=== PATIENT | female | born 1960 | race Caucasian/White ===

== ENCOUNTER 2017-07-27 08:12 | Day surgery (SDC) | payer MEDICAID, SELFPAY ==
--- NOTE | 2017-07-27 08:12 | DT_ITS ---
This patient was seen during an EMR downtime July 25, 2017 - August 01, 2017. This patient may have a combination of paper and electronic documentation or all paper documentation. All documentation is viewable within the e-chart portion of [employer] for each patient visit.
== END 2017-07-27 11:05 | disposition home or self-care (01) ==
LOC: EN 07-28 11:43
PROVIDERS: Family Provider Student in an Organized Health Care Education/Training Program; PCP Student in an Organized Health Care Education/Training Program; Visit Provider Surgery
PROC: 0DJD8ZZ Inspection of Lower Intestinal Tract, Via Natural or Artificial Opening Endoscopic (ICD-10-PCS; CPT 45378; principal; 2017-07-27 09:25)
DX: Z12.11 Encounter for screening for malignant neoplasm of colon (principal); R13.10 Dysphagia, unspecified; K57.90 Diverticulosis of intestine, part unspecified, without perforation or abscess without bleeding; I10 Essential (primary) hypertension; Z79.899 Other long term (current) drug therapy; G25.81 Restless legs syndrome; K44.9 Diaphragmatic hernia without obstruction or gangrene; E78.00 Pure hypercholesterolemia, unspecified; F41.9 Anxiety disorder, unspecified; F32.9 Major depressive disorder, single episode, unspecified
CPT/HCPCS: 43239; 45378; J7120

== ENCOUNTER 2017-09-29 08:43 | Day surgery (SDC) | payer MEDICAID, SELFPAY ==
[2017-09-29 09:43] VITALS: BP 151/108; PULSE 71; TEMP 35.9; O2SAT 98
--- NOTE | 2017-09-29 09:43 | SUR.OPER ---
LIDOCAINE JELLY APPLIED TO INSIDE OF L. NARE. PROBE INSERTED AND MANOMETRY COMPLETED. PT. TOLERATED WELL. PT. AMBULATED TO BATHROOM AND WAITING ROOM. ESCORTED OUT BY MARCOS.
== END 2017-09-29 09:45 | disposition home or self-care (01) ==
LOC: EN 08:44
PROVIDERS: Family Provider Student in an Organized Health Care Education/Training Program; PCP Student in an Organized Health Care Education/Training Program; Visit Provider Surgery
PROC: F00ZJWZ Instrumental Swallowing and Oral Function Assessment using Swallowing Equipment (ICD-10-PCS; CPT 43235; principal; 2017-09-29 08:55)
DX: R13.10 Dysphagia, unspecified (principal)
CPT/HCPCS: 91010

== ENCOUNTER → 2018-07-13 10:00 | Outpatient (CLI) | payer MEDICAID, SELFPAY ==
--- NOTE | 2018-07-13 16:00 | LES_PTH ---
PATIENT: ALISIA JEAN-BAPTISTE LOC: [facility] U#:[id number] AGE/SX: 64/F ROOM: RE07/13/[address]: Dr. Warner Morales MD : 1960 BED: DIS: SPEC #: [id number] RECD: 07/13/18 17:47 STATUS: RADHA REGeo #: [id number] MARGIE: 07/13/18 16:[address]: Warner Morales DEPT: SURGICAL PATHOLOGY RECD BY: Melchor Sanchez ENTERED: 07/14/18 09:20 SP TYPE: Lesion OTHR DR: Dr. Shaan Brown, Tissues: Skin of eyelid, NOS Procedures: Surgery Specimen Level III HEADER OPERATION: Right upper lid lesion PRE-OP DIAGNOSIS: Possible small inclusion cyst TISSUE SUBMITTED: Right upper eyelid lesion MICROSCOPIC DIAGNOSIS Right upper lid lesion, biopsy: Epidermal inclusion cyst. AM:jorge 07/18/18 MICROSCOPIC DESCRIPTION Slides are reviewed. GROSS DESCRIPTION Received in fixative is one container labeled with the patient's name and designated upper lid. The specimen consists of one irregular fragment of light walters soft tissue that measures 0.5 x 0.2 x 0.2 cm. The specimen is totally submitted in one cassette. / AM:jorge 07/14/18 TC:5 CPT: 60288
== END ==
PROVIDERS: Family Provider Student in an Organized Health Care Education/Training Program; PCP Student in an Organized Health Care Education/Training Program; Visit Provider Ophthalmology
DX: H02.9 Unspecified disorder of eyelid (principal)
CPT/HCPCS: 88304; 88305

== ENCOUNTER 2020-09-16 10:29 | Emergency (ER) | payer MEDICAID, SELFPAY ==
[2020-09-16 10:30] VITALS: BP 156/101; PULSE 89; RESP 16; TEMP 36.7; BMI 37.5
[2020-09-16 11:09] LABS: Absolute Lymphocyte Count 2.11 X10^3/uL (0.83-4.51); Absolute Neutrophil Count 7.4 X10^3/uL (2.0-7.7); Basophil# 0.09 X10^3/uL; Basophil% 0.8 % (0-1); Eosinophil# 0.29 X10^3/uL; Eosinophils% 2.7 % (0-5); Hematocrit 46.2 % (37-47); Hemoglobin 15.9 g/dL (12.0-15.0); Lymphocyte # 2.11 X10^3/ul (0.83-4.51); Lymphocyte % 19.4 % (19-41); Mean Corp Hgb Conc 34.4 g/dL (32-36); Mean Corpuscular Hgb 31.1 pg (27.0-32.0); Mean Corpuscular Volume 90.4 fL (81-99); Monocyte# 1.02 X10^3/uL; Monocyte% 9.4 % (0-10); NRBC Flagged by Analyzer 0 % (0-5); Neutrophil # 7.35 X10^3/uL (2.7-7.7); Neutrophil % 67.3 % (47-70); Platelet Count 350 K/mm3 (150-450); RBC Distribution Width CV 11.1 % (11.6-14.6); RBC Distribution Width SD 36.7 fl (35.1-43.9); Red Blood Count 5.11 M/mm3 (4.2-5.4); White Blood Count 10.9 K/mm3 (4.4-11.0)
--- NOTE | 2020-09-16 11:09 | EDS_ITS ---
HPI History of Present Illness Chief Complaint: Hypertension Narrative Narrative: 60-year-old female presenting with abdominal pain, nausea, vomiting. She states this is been going on since Tuesday. Patient was seen in [place] and had a CT of the abdomen pelvis performed which she and her family stated there was a mass in her abdomen which supposedly is not obstructing anything. Patient not able to hold down food and fluids.Patient has not had fever or chills. She states that she has hypertension and prediabetes. No urinary complaints. PFSH PFS Medical History (Updated 09/16/20 @ 11:12 by Fam James) Depression Diabetes Dysphagia Home Medications multivitamin 1 tab PO DAILY 06/14/17 [History Last Taken 09/12/20] hydrochlorothiazide 12.5 mg PO DAILY 07/13/17 [History Last Taken 09/12/20] potassium chloride 10 meq PO DAILY 07/13/17 [History Last Taken 09/12/20] cholecalciferol (vitamin D3) 2,000 unit PO DAILY 09/16/20 [History Last Taken 09/12/20] metformin 500 mg PO DAILY 09/16/20 [History Last Taken 09/12/20] Allergy/AdvReac Type Severity Reaction Status Date / Time No Known Allergies Allergy Verified 10/28/17 10:30 Family History Mother Hypertension Surgical History History of esophagogastroduodenoscopy (EGD) Hx of colonoscopy S/P laparoscopic cholecystectomy Social History Smoking Status: Never smoker alcohol intake: never ROS ROS ED Constitutional Constitutional ED: Denies change in weight Eyes Eyes: Denies diplopia or double vision ENT ENT ED: Denies ear pain or sore throat Cardiovascular Cardiovascular: Denies chest pain, palpitations or racing heartbeat Respiratory/Chest Respiratory/Chest: Denies cough, dyspnea or sputum Gastrointestinal Gastrointestinal: Reports abdominal pain, nausea and vomiting; Denies constipation or diarrhea Genitourinary Genitourinary ED: Denies dysuria, hematuria or urinary frequency Musculoskeletal Musculoskeletal: Denies arthralgias, myalgias or neck pain Integumentary Denies abscess, Abrasions or rash Neurologic Neurologic: Denies headache(s), paresthesias or weakness Psychiatric Psychiatric: Denies anxiety, depression, suicidal ideation or suicidal thoughts Endocrine Endocrinology: Denies polydipsia or polyuria EXAM Physical Exam Const Vital Signs: 09/16/20 10:30 09/16/20 11:11 09/16/20 13:24 Temperature 98.0 F Temperature Source Temporal Pulse Rate 89 85 Respiratory Rate 16 19 H Respiratory Effort Normal Respiratory Pattern Normal Blood Pressure 156/101 H 153/106 H Blood Pressure Mean 119 121 Pulse Ox 95 Oxygen Delivery Method Room Air 09/16/20 14:51 09/16/20 15:15 Temperature Temperature Source Pulse Rate 84 80 Respiratory Rate 20 H 17 Respiratory Effort Respiratory Pattern Blood Pressure 143/88 H Blood Pressure Mean 106 Pulse Ox 96 Oxygen Delivery Method Room Air Positive obese and no apparent distress General Appearance ED: Negative for pallor Nutritional Appearance: obese HEENT Reports normocephalic, head/scalp atraumatic, moist mucous membranes and moist oral mucous membranes normocephalic and atraumatic Eyes PERRL and EOMs intact bilaterally; Negative for no scleral icterus Pupil: PERRL Neck full ROM, no lymphadenopathy and supple Resp normal respiratory effort and clear to auscultation bilaterally Auscultation: Negative for rales, rhonchi or wheezes Cardio regular rate and regular rhythm GI GI Narrative: Epigastric tenderness to palpation. Auscultation: normoactive bowel sounds Palpation: soft Narrative: Deferred Back/Spine no CVA tenderness Extremity normal to inspection General Extremety ED: Negative for edema or tenderness General Extremity: Negative for edema Neuro oriented x3 and CN's II-XII intact bilaterally Sensorium / Orientation: alert, oriented to person, oriented to place and oriented to time Motor Exam: strength 5/5 throughout Psych mental status grossly normal and thought process normal Attitude: No agitated Skin no rashes or lesions noted and no wounds General Skin Exam: Negative for jaundice or pallor MDM MDM MDM Narrative Medical decision making narrative: Patient presenting with abdominal pain, nausea, vomiting. Her blood pressure is elevated however she has been vomiting. Her current blood pressure is 143/88. Patient had a CT of the abdomen pelvis performed and states that she was told she may have a malignancy. While awaiting the CT to be uploaded in the system I did check lab work and her lab work is otherwise unremarkable with exception of a potassium of 3.1. CT of the abdomen pelvis reviewed with Dr. Horner and it does look like the patient has a gastric outlet syndrome. He stated that he could do an upper endoscopy but he would not be able to do anything for obstruction if we found this. He stated it would be better for them to be transferred to a tertiary facility that can manage this. I did speak with [facility] where she was initially referred and I did accept admission. Patient had NG tube placed and tolerated this well. KUB on my interpretation shows that the nasogastric tube is in the stomach. The radiologist does agree. We have been getting gastric contents with low intermittent suction. Patient is currently stable and awaiting transfer. Impression: 1. Gastric outlet obstruction 2. Nausea/vomiting Lab Data Attestation: I reviewed the patient's lab results. Labs: Laboratory Results - last 24 hr 09/16/20 09/16/20 11:05 11:05 WBC 10.9 RBC 5.11 Hgb 15.9 H Hct 46.2 MCV 90.4 MCH 31.1 MCHC 34.4 RDW Std Deviation 36.7 RDW Coeff of Konstantin 11.1 L Plt Count 350 MPV 9.0 Immature Gran % (Auto) 0.400 Neut % (Auto) 67.3 Lymph % (Auto) 19.4 [place] % (Auto) 9.4 Eos % (Auto) 2.7 Baso % (Auto) 0.8 Absolute Neuts (auto) 7.4 Absolute Lymphs (auto) 2.11 Nucleated RBC % 0 Sodium 137 Potassium 3.1 L Chloride 97 L Carbon Dioxide 32.0 Anion Gap 8 BUN 16 Creatinine 0.89 Estim Creat Clear Calc 66.19 Est GFR (MDRD) Af Amer 83 Est GFR (MDRD) Non-Af 69 BUN/Creatinine Ratio 17.9 Glucose 140 H Calcium 9.9 Total Bilirubin 0.90 Direct Bilirubin 0.22 AST 28 ALT 48 Alkaline Phosphatase 61 Total Protein 8.4 H Albumin 4.2 Globulin 4.2 Lipase 154 Radiography Diagnostic Testing: Radiology Impression KUB X-Ray 09/16/20 15:30 IMPRESSION: The tip of the nasogastric tube is in the body of the stomach just distal to the gastroesophageal junction. Electronically Signed: Regan Todd MD at 15:53 EDT , Service support , Discharge Plan Triage Chief Complaint: Hypertension ED Provider: Obdulio Osei Dx/Rx/DC Orders Prescriptions: No Action multivitamin tablet 1 tab PO DAILY RF: 0 hydrochlorothiazide 12.5 MG capsule 12.5 mg PO DAILY RF: 0 potassium chloride 10 MEQ tablet 10 meq PO DAILY RF: 0 metformin 500 mg tablet 500 mg PO DAILY RF: 0 cholecalciferol (vitamin D3) 50 mcg (2,000 unit) tablet 2,000 unit PO DAILY RF: 0 Primary Care Provider: Shaan Brown Referrals: Shaan Brown DO [Primary Care Provider] - Disposition Disposition: Transfer to Another Type HCF Discharge Location: [facility] Discharge Date/Time: 09/16/20 16:13
[2020-09-16] MEDS: 0.9% Normal Saline 1,000 ML 999 ML IV (11:16)
[2020-09-16] MEDS: Ondansetron 4 MG/2 ML Vial IV (11:16)
[2020-09-16 11:25] LABS: AST(SGOT) 28 U/L (15-37); Alanine Aminotransfer ALT/SGPT 48 U/L (13-56); Albumin, Serum 4.2 g/dL (3.2-5.0); Alkaline Phosphatase 61 U/L (45-117); Anion Gap 8 (5-15); BUN 16 mg/dL (7-18); BUN/Creat Ratio 17.9 RATIO (10-20); Bilirubin, Direct 0.22 mg/dL (0.00-0.30); Calcium,Total 9.9 mg/dL (8.5-10.1); Chloride 97 mmol/L (98-107); Creatinine, Serum 0.89 mg/dL (0.55-1.02); EST Glomerular Filtration Rate 69 mL/min (>60); Est Glom Filt Rate - Afr Amer 83 mL/min (>60); Estimated Creatinine Clearance 66.19 ml/min; Globulin 4.2 g/dL (2.2-4.2); Glucose 140 mg/dL (74-106); Lipase 154 U/L (73-393); Potassium 3.1 mmol/L (3.5-5.1); Protein, Total 8.4 g/dL (6.4-8.2); Sodium Level 137 mmol/L (136-145)
[2020-09-16 13:24] VITALS: BP 153/106; PULSE 85; RESP 19; O2SAT 95
--- NOTE | 2020-09-16 14:27 | ED.RN ---
CALLED [facility] REGARDING TRANSFER OF PT. DR VILLASENOR TALKING WITH TRANSFER LINE AND DEMOGRAPHIC FAXED
[2020-09-16] MEDS: Lidocaine 4% 5 ML Ampul 2 ML INHALATION (14:46)
[2020-09-16 14:51] VITALS: PULSE 84; RESP 20
[2020-09-16 15:15] VITALS: BP 143/88; PULSE 80; RESP 17; O2SAT 96
[2020-09-16] MEDS: Oxymetazoline 0.05% 1 SPRAY SPRAY.BTL 2 SPRAY NASAL (15:15)
--- NOTE | 2020-09-16 15:30 | RAD_ITS ---
STUDY: X-RAY - ABDOMEN/PELVIS REASON FOR EXAM: Female, 60 years old. Abdominal pain -- KUB with both diaphragms for PRICE/G Verification TECHNIQUE: Single AP view of the abdomen / pelvis. COMPARISON: None. FINDINGS: The tip of the nasogastric tube is in the body of the stomach just distal to the gastroesophageal junction. There is an unremarkable bowel gas pattern. The visualized liver, spleen and kidneys are grossly normal in size and morphology. Normal soft tissue structures. There are degenerative changes of the visualized lumbar spine. RAD/Abdomen Single View (Portable) IMPRESSION: The tip of the nasogastric tube is in the body of the stomach just distal to the gastroesophageal junction. Electronically Signed: Regan Todd MD at 15:53 EDT , Service support ,
== END 2020-09-16 16:13 | disposition other institution (70) ==
LOC: ED 11:23
PROVIDERS: Emergency Provider Student in an Organized Health Care Education/Training Program; PCP Student in an Organized Health Care Education/Training Program
DX: K31.1 Adult hypertrophic pyloric stenosis (principal); E11.9 Type 2 diabetes mellitus without complications; Z79.84 Long term (current) use of oral hypoglycemic drugs
CPT/HCPCS: 74018; 80048; 80076; 83690; 85025; 94640; 96361; 96374; 99285; J7030; A4216; J2405

== ENCOUNTER 2021-09-11 19:37 | Emergency (ER) | payer MEDICAID, SELFPAY ==
[2021-09-11 19:38] VITALS: BP 180/96; PULSE 111; RESP 16; TEMP 36.4; O2SAT 99; BMI 28.1
[2021-09-11 20:16] LABS: Bacteria 0 SEEN /hpf (None Seen); Mucous, Urine 0 SEEN /hpf (<or=2+); Red Blood Cells-Urine 0 SEEN /hpf (0-5)
[2021-09-11 20:18] LABS: Absolute Lymphocyte Count 2.78 X10^3/uL (0.83-4.51); Absolute Neutrophil Count 5.8 X10^3/uL (2.0-7.7); Basophil# 0.05 X10^3/uL; Basophil% 0.5 % (0-1); Eosinophil# 0.09 X10^3/uL; Hemoglobin 14.1 g/dL (12.0-15.0); Lymphocyte # 2.78 X10^3/ul (0.83-4.51); Lymphocyte % 29.4 % (19-41); Mean Corp Hgb Conc 34.4 g/dL (32-36); Mean Corpuscular Volume 90.1 fL (81-99); Monocyte# 0.75 X10^3/uL; Monocyte% 7.9 % (0-10); NRBC Flagged by Analyzer 0 % (0-5); Neutrophil # 5.78 X10^3/uL (2.7-7.7); Platelet Count 301 K/mm3 (150-450); RBC Distribution Width CV 11.9 % (11.6-14.6); RBC Distribution Width SD 38.7 fl (35.1-43.9); Red Blood Count 4.55 M/mm3 (4.2-5.4); White Blood Count 9.5 K/mm3 (4.4-11.0)
[2021-09-11 20:19] LABS: Color, Urine Yellow (Yellow); Glucose, Dipstick Normal (Normal); Ketone-Dipstick Negative (Negative); Leukocyte Esterase-Dipstick 500 /ul (Negative); Nitrite-Dipstick Negative (Negative); Occult Blood-Urine Negative /ul (Negative); Protein-Dipstick Negative (Negative); Specific Gravity, Urine 1.015 (1.002-1.030); Urine Bilirubin Dipstick Negative (Negative); Urine Clarity Sl. Cloudy (Clear); Urine Urobilinogen Normal (Normal)
[2021-09-11 20:58] LABS: Amorphous Sediment 1+ URATE; Squamous Epithelial Cells - UA 0-5 SEEN /hpf (5-10); White Blood Cells 25-50 SEEN /hpf (0-5)
--- NOTE | 2021-09-11 21:12 | CT_ITS ---
EXAM: CT ABDOMEN AND PELVIS WITHOUT INTRAVENOUS CONTRAST CLINICAL INDICATION: Pain epigastric TECHNIQUE: Helically acquired images were obtained of the abdomen and pelvis without intravenous contrast. This CT exam was performed using one or more of the following dose reduction techniques: automated exposure control, adjustment of the mA and/or kV according to patient size, and/or use of iterative reconstruction technique. This report was created using [employer] report generation technology. COMPARISON: 09/15/2020 FINDINGS: LOWER THORAX: Unremarkable. Lung bases are clear. No cardiomegaly. No significant pericardial effusion. ABDOMEN: LIVER: Unremarkable. Homogeneous. GALLBLADDER AND BILE DUCTS: There are surgical clips from a cholecystectomy. No intra- or extrahepatic biliary ductal dilation. PANCREAS: There is a stent within the pancreatic duct. No focal cystic mass. SPLEEN: Unremarkable. Normal size without focal cystic or solid mass. ADRENALS: Unremarkable. No nodules. KIDNEYS AND URETERS: Unremarkable. Normal renal size and position. No hydronephrosis. STOMACH AND BOWEL: Unremarkable. No stomach or bowel distention. No focal inflammatory change. PELVIS: APPENDIX: No evidence of acute appendicitis. BLADDER: Unremarkable. REPRODUCTIVE: Unremarkable as visualized. No mass. ABDOMEN and PELVIS: INTRAPERITONEAL SPACE: Unremarkable. No ascites or other fluid collection. No free air. BONES/JOINTS: Unremarkable. No suspicious lytic or blastic abnormality. SOFT TISSUES: Unremarkable. No discrete abdominal or pelvic wall hernia. VASCULATURE: Unremarkable. Abdominal aorta is non-dilated. LYMPH NODES: Unremarkable. No enlarged lymph nodes. CT/Abdomen/Pelvis without Cont IMPRESSION: No acute findings in the abdomen or pelvis. Electronically Signed: Woody Raymond MD at 22:13 EDT ,
--- NOTE | 2021-09-11 21:13 | EDS_ITS ---
HPI HPI - GI History of Present Illness Chief Complaint: Nausea/Vomiting Informant: patient Abdominal Pain/Flank Pain Onset: Today Context: Gradual Onset Timing: Continuous Quality: Aching Location: Epigastric (Across upper abdomen, no radiation) Current Severity: Mild Maximum Severity: Severe Worsened by: Nothing Relieved by: - (Vomiting) Nausea/Vomiting/Emesis GI Symptom: Positive for Nausea and Vomiting Onset: Today Quality: Positive for Nonbilious; Negative for Blood streaks, Coffee ground or Hematemesis Diarrhea/Melena/Hematochezia GI Symptom: Negative for Diarrhea, Melena or Hematochezia Associated Symptoms Associated Symptoms: Negative for Dysuria, Frequency, Hematuria or Urgency Narrative Narrative: Patient has had unusual GI symptoms she states for some time, but it is more like unusual interruption of her breathing, she states is hard to describe, and she was told she may have some reflux but she is not on medication for it. She had a Whipple 1 or 2 years ago and also has had her gallbladder out. She states today she was having upper abdominal pain that became excruciating, so she came to the ER for that. Now, she is feeling much better, seem to get much better after vomiting. She has vomited several times today. [facility] Medical History Depression Diabetes Dysphagia Home Medications hydrochlorothiazide 12.5 mg capsule 12.5 mg PO DAILY FLUID 07/13/17 [History Last Taken 09/12/20] cholecalciferol (vitamin D3) 50 mcg (2,000 unit) tablet 2,000 unit PO DAILY SUPPLEMENT 09/16/20 [History Last Taken 09/12/20] dicyclomine 10 mg capsule 10 mg PO Q6H PRN PRN abdominal discomfort #20 CAPSULES 09/12/21 [Rx Last Taken Unknown] metoclopramide HCl 10 mg tablet 10 mg PO Q6H PRN nausea and vomiting #20 tabs 09/12/21 [Rx Last Taken Unknown] pantoprazole 40 mg tablet,delayed release (Protonix) 40 mg PO DAILY #30 tabs 09/12/21 [Rx Last Taken Unknown] sucralfate 1 gram tablet (Carafate) 1 g PO .qid #28 tabs 09/12/21 [Rx Last Taken Unknown] Allergy/AdvReac Type Severity Reaction Status Date / Time No Known Allergies Allergy Verified 09/11/21 19:40 Family History Mother Hypertension Surgical History History of esophagogastroduodenoscopy (EGD) Hx of colonoscopy S/P laparoscopic cholecystectomy Social History Smoking Status: Never smoker alcohol intake: never ROS ROS ED Constitutional Constitutional ED: Denies chills or fever(s) Eyes Eyes: Denies change in vision or diplopia ENT ENT ED: Denies rhinorrhea or sore throat Cardiovascular Cardiovascular: Denies chest pain or palpitations Respiratory/Chest Respiratory/Chest: Denies cough or dyspnea Gastrointestinal Gastrointestinal: Reports abdominal pain, nausea and vomiting; Denies diarrhea Genitourinary Genitourinary ED: Denies dysuria or hematuria Musculoskeletal Musculoskeletal: Denies back pain or neck pain Integumentary Denies abscess or rash Neurologic Neurologic: Denies headache(s), paresthesias or weakness Psychiatric Psychiatric: Denies anxiety or suicidal thoughts EXAM Physical Exam Const Vital Signs: 09/11/21 19:38 09/11/21 22:41 Temperature 97.5 F L 96.9 F L Temperature Source Temporal Temporal Pulse Rate 111 H 78 Respiratory Rate 16 18 Blood Pressure 180/96 H 155/92 H Blood Pressure Mean 124 113 Pulse Ox 99 96 Oxygen Delivery Method Room Air Room Air Positive well nourished and well developed General Appearance ED: well developed and NAD HEENT Reports moist mucous membranes normocephalic and atraumatic Eyes PERRL and EOMs intact bilaterally Neck full ROM and supple Resp normal respiratory effort and clear to auscultation bilaterally Cardio regular rate, regular rhythm and no murmurs GI non-tender and non-distended Auscultation: hypoactive bowel sounds Palpation: soft Back/Spine no CVA tenderness General Back: other FROM Extremity normal to inspection General Extremety ED: Negative for edema, pulses abnormal or tenderness General Extremity: Negative for edema or pulses abnormal Neuro oriented x3, CN's II-XII intact bilaterally and no sensory deficits noted Sensorium / Orientation: awake and alert Motor Exam: strength 5/5 throughout Skin no rashes or lesions noted and no wounds MDM MDM MDM Narrative Medical decision making narrative: Upper abdominal etiologies, intraluminal etiologies, partial bowel obstruction, and cardiac etiologies were all considered in the differential of this upper abd ominal pain in the context of an elevated blood pressure 180/96. Labs are unremarkable including troponin, her urinalysis is abnormal but she has no urinary symptoms I will send her for a culture. There were no bacteria in it on the microscopy. Her EKG shows a sinus rhythm with first-degree block but no acute injury pattern or evidence of repolarization abnormality at this time. She was initially given Zofran and then morphine once her pain recurred, it did not really help much. Her CT was negative for anything acute. Therefore considering intraluminal possibilities not exclusive of peptic ulcer disease, I gave her Protonix, Bentyl, GI cocktail, and a small dose of IV Reglan, she has significant relief within 20 minutes. Therefore I will send her home with prescriptions for Protonix, dicyclomine, Carafate, and prn Reglan. Follow-up advised. She is comfortable with that plan. Lab Data Attestation: I reviewed the patient's lab results. Labs: Laboratory Results - last 24 hr 09/11/21 09/11/21 09/11/21 20:07 20:11 20:11 WBC 9.5 RBC 4.55 Hgb 14.1 Hct 41.0 MCV 90.1 MCH 31.0 MCHC 34.4 RDW Std Deviation 38.7 RDW Coeff of Konstantin 11.9 Plt Count 301 MPV 9.0 Immature Gran % (Auto) 0.200 Neut % (Auto) 61.0 Lymph % (Auto) 29.4 [place] % (Auto) 7.9 Eos % (Auto) 1.0 Baso % (Auto) 0.5 Absolute Neuts (auto) 5.8 Absolute Lymphs (auto) 2.78 Nucleated RBC % 0 Sodium Cancelled Potassium Cancelled Chloride Cancelled Carbon Dioxide Cancelled Anion Gap Cancelled BUN Cancelled Creatinine Cancelled Estim Creat Clear Calc Cancelled Est GFR (MDRD) Af Amer Cancelled Est GFR (MDRD) Non-Af Cancelled BUN/Creatinine Ratio Cancelled Glucose Cancelled Calcium Cancelled Total Bilirubin AST ALT Alkaline Phosphatase Troponin I High Sens Total Protein Albumin Globulin Albumin/Globulin Ratio Lipase Urine Color Yellow Urine Clarity Sl. Cloudy Urine pH 6.0 Ur Specific [place] 1.015 Urine Protein Negative Urine Glucose (UA) Normal Urine Ketones Negative Urine Occult Blood Negative Urine Nitrite Negative Urine Bilirubin Negative Urine Urobilinogen Normal Ur Leukocyte Esterase 500 H Urine RBC 0 SEEN Urine WBC 25-50 SEEN Ur Squamous Epith Cells 0-5 SEEN Amorphous Sediment 1+ URATE Urine Bacteria 0 SEEN Urine Mucus 0 SEEN 09/11/21 09/11/21 20:11 20:11 WBC RBC Hgb Hct MCV MCH MCHC RDW Std Deviation RDW Coeff of Konstantin Plt Count MPV Immature Gran % (Auto) Neut % (Auto) Lymph % (Auto) [place] % (Auto) Eos % (Auto) Baso % (Auto) Absolute Neuts (auto) Absolute Lymphs (auto) Nucleated RBC % Sodium 141 Potassium 3.4 L Chloride 107 Carbon Dioxide 28.0 Anion Gap 6 BUN 11 Creatinine 0.79 Estim Creat Clear Calc 73.64 Est GFR (MDRD) Af Amer 95 Est GFR (MDRD) Non-Af 79 BUN/Creatinine Ratio 13.9 Glucose 156 H Calcium 9.2 Total Bilirubin 0.50 AST 25 ALT 33 Alkaline Phosphatase 81 Troponin I High Sens 9 Total Protein 7.8 Albumin 3.8 Globulin 4.0 Albumin/Globulin Ratio 1.0 Lipase 161 Urine Color Urine Clarity Urine pH Ur Specific [place] Urine Protein Urine Glucose (UA) Urine Ketones Urine Occult Blood Urine Nitrite Urine Bilirubin Urine Urobilinogen Ur Leukocyte Esterase Urine RBC Urine WBC Ur Squamous Epith Cells Amorphous Sediment Urine Bacteria Urine Mucus Radiography Diagnostic Testing: Clinical Impression(s) from Imaging Studies Abdomen/Pelvis CT 09/11/21 21:12 IMPRESSION: No acute findings in the abdomen or pelvis. Electronically Signed: Woody Raymond MD at 22:13 EDT , Rhythm Strip Rhythm Strip: Sinus Rhythm Rate: 85 Ectopy: None EKG Initial EKG: Attestation: I personally reviewed and interpreted this EKG as follows: Interpretation: Sinus Rhythm, No Acute Injury Pattern and AV Block (1st deg) Discharge Plan Triage Chief Complaint: Nausea/Vomiting ED Provider: Israel Franklin Dx/Rx/DC Orders Clinical Impression: Acute upper abdominal pain, Nausea and vomiting Instructions: ED PEPTIC ULCER vs GASTRITIS Prescriptions: New pantoprazole [Protonix] 40 mg tablet,delayed release (DR/EC) 40 mg PO DAILY Qty: 30 0RF dicyclomine 10 mg capsule 10 mg PO Q6H PRN PRN (Reason: abdominal discomfort) Qty: 20 0RF metoclopramide HCl [metoclopramide HCl] 10 mg tablet 10 mg PO Q6H PRN (Reason: nausea and vomiting) Qty: 20 0RF sucralfate [Carafate] 1 gram tablet 1 g PO .qid Qty: 28 0RF No Action hydrochlorothiazide 12.5 MG capsule 12.5 mg PO DAILY cholecalciferol (vitamin D3) 50 mcg (2,000 unit) tablet 2,000 unit PO DAILY Label Comments: TAKE 1 TABLET BY MOUTH ONCE DAILY Primary Care Provider: Shaan Brown Referrals: Shaan Brown DO [Primary Care Provider] - 3-5 Days if not improving Disposition Disposition: Home, Self Care
[2021-09-11] MEDS: 0.9% Normal Saline 1,000 ML 1000 ML IV (21:23)
[2021-09-11 21:40] LABS: AST(SGOT) 25 U/L (15-37); Alanine Aminotransfer ALT/SGPT 33 U/L (13-56); Albumin, Serum 3.8 g/dL (3.2-5.0); Alkaline Phosphatase 81 U/L (45-117); Anion Gap 6 (5-15); BUN 11 mg/dL (7-18); BUN/Creat Ratio 13.9 RATIO (10-20); Calcium,Total 9.2 mg/dL (8.5-10.1); Chloride 107 mmol/L (98-107); Creatinine, Serum 0.79 mg/dL (0.55-1.02); EST Glomerular Filtration Rate 79 mL/min (>60); Est Glom Filt Rate - Afr Amer 95 mL/min (>60); Estimated Creatinine Clearance 73.64 ml/min; Glucose 156 mg/dL (74-106); Lipase 161 U/L (73-393); Potassium 3.4 mmol/L (3.5-5.1); Protein, Total 7.8 g/dL (6.4-8.2); Sodium Level 141 mmol/L (136-145)
[2021-09-11 22:41] VITALS: BP 155/92; PULSE 78; RESP 18; TEMP 36.1; O2SAT 96
--- NOTE | 2021-09-11 22:43 | EKG12_ITS ---
Test Reason : CP Blood Pressure : / mmHG Vent. Rate : 084 BPM Atrial Rate : 084 BPM P-R Int : 212 ms QRS Dur : 088 ms QT Int : 408 ms P-R-T Axes : 064 065 048 degrees QTc Int : 482 ms Sinus rhythm with 1st degree A-V block Prolonged QT Abnormal ECG Confirmed by DAVION GONZALEZ, SADI ([id number]), newspaper editor HANNAH BUCKNER ([id number]) on 09/15/2021 9:20:02 AM Referred By: BB Confirmed By:SADI RICARDO MD
[2021-09-11] MEDS: Morphine 4 MG/ML Syringe IV (22:48)
[2021-09-11] MEDS: Ondansetron 4 MG/2 ML Vial IV (22:50)
[2021-09-11 23:21] LABS: Troponin-I HS 9 pg/mL (3.0-54.0)
[2021-09-12] MEDS: Dicyclomine 10 MG Capsule PO (00:01)
[2021-09-12] MEDS: Pantoprazole Sodium 40 MG Tablet PO (00:01)
[2021-09-12] MEDS: Mag Hydrox/Al Hydrox/Simeth 30 ML UDC PO (00:01)
[2021-09-12] MEDS: Metoclopramide 10 MG/2 ML Vial 2.5 MG IV (00:02)
[2021-09-12 00:48] VITALS: BP 132/78; PULSE 69; RESP 17; O2SAT 98
== END 2021-09-12 00:49 | disposition home or self-care (01) ==
PROVIDERS: Emergency Provider Emergency Medicine; PCP Student in an Organized Health Care Education/Training Program; Visit Provider Emergency Medicine
DX: R11.2 Nausea with vomiting, unspecified (principal); R10.13 Epigastric pain
CPT/HCPCS: 74176; 80053; 81001; 83690; 84484; 85025; 93005; 96361; 96374; 96375; 99284; J7030; A4216; J2405

== ENCOUNTER 2024-08-24 12:55 | Emergency (ER) | payer MEDICAID, SELFPAY ==
[2024-08-24 12:55] VITALS: BP 127/76; PULSE 65; RESP 18; TEMP 36.8; O2SAT 99; BMI 27.0
[2024-08-24 14:55] VITALS: PULSE 68; RESP 16
[2024-08-24 15:10] LABS: D-Dimer Quantitative (DVT/PE) 0.37 FEU/ug/m (0.27-0.49)
[2024-08-24 15:37] VITALS: BP 120/70; PULSE 68; RESP 16; TEMP 36.8; O2SAT 99
== END 2024-08-24 15:38 | disposition home or self-care (01) ==
PROVIDERS: Physician Assistant; Emergency Provider Emergency Medicine; PCP Student in an Organized Health Care Education/Training Program; Visit Provider Emergency Medicine
DX: I83.891 Varicose veins of right lower extremity with other complications (principal); I10 Essential (primary) hypertension; Z79.899 Other long term (current) drug therapy
CPT/HCPCS: 85379; 99282